=== PATIENT | female | born 1995 | race Caucasian/White ===

== ENCOUNTER → 2016-11-07 | Outpatient (CLI) | payer OTHER ==
[~2016-11-07] MED LIST: ASPI325T39 PO; HYDR-3419 PO
== END | disposition home or self-care (01) ==
LOC: C.RDSM 15:35
PROVIDERS: ATTEND Family Medicine Sports Medicine
DX: M79.672 Pain in left foot (principal)

== ENCOUNTER → 2016-11-13 | Outpatient (CLI) | payer OTHER ==
--- NOTE | 2016-11-13 11:34 | DIAGNOSTIC IMAGING REPORT ---
MRI right knee LOWER EXT JOINT WITHOUT CLINICAL HISTORY: M25.561,M95.8 pain TECHNIQUE: MRI multi axial acquisition COMPARISON STUDY: None FINDINGS: Signal characteristics the osseous structures are unremarkable. There is no bone marrow replacing process. The medial and lateral menisci are unremarkable in configuration and signal character. Medial and lateral collateral ligaments are intact. There is a very small joint effusion. There is no popliteal cyst. Anterior and posterior posterior cruciate ligaments are intact. Slight degree of chondromalacia patella at the superior superior patellar articulating surface. 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 Study of the knee is otherwise negative. Electronically signed by: Reno Faria M.D. 11/13/2016 11:32 AM Dictated Date/Time: 11/13/2016 11:24 AM
== END | disposition home or self-care (01) ==
LOC: C.MRI 09:37
PROVIDERS: ATTEND Family Medicine Sports Medicine
DX: M25.561 Pain in right knee (principal); M95.8 Other specified acquired deformities of musculoskeletal system